=== PATIENT | male | born 1950 | race Caucasian/White ===

== ENCOUNTER → 2016-05-19 | Day surgery (SDC) | payer BC, OTHER ==
[~2016-05-19] MED LIST: Metoclopramide 10 MG/2 ML SDV IV PRN; Midazolam 1 MG/ML 5 ML SDV ONE; Propofol 200 MG/20 ML SDV ONE; Sodium Chloride 0.9% 1,000 ML IV SCH; Sodium Chloride 0.9% 10 ML Syringe FLUSH PRN
--- NOTE | 2016-05-19 14:09 | OR ---
DATE OF OPERATION: 05/19/2016 PREOPERATIVE DIAGNOSIS: Screening colonoscopy. POSTOPERATIVE DIAGNOSES: 1. Diverticulosis coli. 2. Normal colonoscopy. OPERATION: Screening colonoscopy. COMPLICATIONS: None. DRAINS: None. SPECIMENS: None. ESTIMATED BLOOD LOSS: Zero. ANESTHESIA: General propofol anesthesia. INDICATION: Mr. Bashir is a 65-year-old gentleman here for screening colonoscopy. He is considered an increased risk due to the family history of colon cancer. The above-mentioned procedure was explained. The risks, benefits, and complications were explained. The patient understood and agreed and was brought to the operating room. DESCRIPTION OF PROCEDURE: The patient was brought to the operating room and placed in a left lateral decubitus position on the operating room table. Satisfactory general propofol anesthesia was administered. We began by performing a rectal examination, which revealed no significant finding except for some external skin tags suggestive of previous external hemorrhoids. We then placed the endoscope by finger introduction into the rectum and subsequently advanced this to the level of the cecum. The cecum was identified by the appendiceal orifice, the ileocecal valve, and the cecal strap. Next, careful evaluation of the mucosa was performed on withdrawal. This revealed no telangiectasias. No polyps. No neoplastic growths. However, there were some scattered diverticula involving the transverse colon and more concentrated with [id number] diverticulosis of the distal descending sigmoid and rectosigmoid junctions. No other abnormalities were detected. I performed a retroflexion maneuver in the rectum, which revealed no other abnormalities. The colon was then decompressed and the endoscope was withdrawn. The patient tolerated the procedure well. There were no complications. Instrument count was correct. The patient was awoken in the OR and taken to the PACU for recovery. ZANDER/MARGI /[id number]
[2016-05-19 15:06] VITALS: BP 138/79
== END ==
LOC: LB.SDS 10:08
PROVIDERS: ATTEND Surgery
PROC: 0DJD8ZZ Inspection of Lower Intestinal Tract, Via Natural or Artificial Opening Endoscopic (ICD-10-PCS; principal; 2016-05-19)
DX: Z12.11 Encounter for screening for malignant neoplasm of colon (principal); K57.30 Diverticulosis of large intestine without perforation or abscess without bleeding; Z79.899 Other long term (current) drug therapy; I10 Essential (primary) hypertension; I25.10 Atherosclerotic heart disease of native coronary artery without angina pectoris; N40.0 Benign prostatic hyperplasia without lower urinary tract symptoms; J45.909 Unspecified asthma, uncomplicated
CPT/HCPCS: 45378; J2250; J2704; J7040

== ENCOUNTER 2022-10-26 09:40 | Day surgery (SDC) | payer MEDICARE, BC ==
[~2022-10-26 09:40] MED LIST changes: -Midazolam 1 MG/ML 5 ML SDV ONE; -Propofol 200 MG/20 ML SDV ONE; -Sodium Chloride 0.9% 1,000 ML IV SCH; -Sodium Chloride 0.9% 10 ML Syringe FLUSH PRN
[2022-10-26] MEDS: Sodium Chloride 0.9% 1,000 ML IV SCH (10:36)
[2022-10-26] MEDS ORDERED: Propofol 200 MG/20 ML SDV ONE (11:30)
[2022-10-26 11:46] VITALS: BP 123/79; PULSE 71
== END 2022-10-26 12:30 | disposition home or self-care (01) ==
LOC: LB.SDS 09:40
PROVIDERS: ATTEND Surgery
DX: K57.30 Diverticulosis of large intestine without perforation or abscess without bleeding (principal); I10 Essential (primary) hypertension; J45.909 Unspecified asthma, uncomplicated; I25.10 Atherosclerotic heart disease of native coronary artery without angina pectoris
CPT/HCPCS: J2704; J7030